=== PATIENT | female | born 1980 ===

== ENCOUNTER 2019-03-20 16:35 | Outpatient (REF) | payer BC, SELFPAY ==
[2019-03-23 11:01] LABS: TSH (W/Ref FT4) 1.08 uIU/mL (0.36-3.74)
[2019-03-23 11:02] LABS: HCT 37.9 % (36.0-46.0); HGB 12.7 g/dL (12.0-15.5); Mean Corp. HGB Concentration 33.5 g/dL (32.0-36.0); Mean Corpuscular Hemoglobin 30.4 pg (27.0-33.0); Mean Corpuscular Volume 90.7 fL (80-95); Mean Platelet Volume 10.1 fL (8.0-11.0); Platelet Count 276 x1000/uL (130-400); RBC 4.18 m/cumm (4.00-5.20); RBC Distribution Width 12.3 % (11.7-14.6); White Blood Cell Count 6.72 k/cumm (4.4-10.8)
[2019-03-23 11:52] LABS: Vitamin D 25 Total 38.3 ng/ml (30-100)
== END 2019-03-20 16:55 ==
LOC: NCHCN 16:35
PROVIDERS: Visit Provider Nurse Practitioner Family
DX: R53.83 Other fatigue (principal)
CPT/HCPCS: 82306; 85027; 84443

== ENCOUNTER 2020-10-24 22:00 | Outpatient (REF) | payer BC, SELFPAY ==
[2020-10-26 11:27] LABS: COVID-19 RT-PCR UVMMC Result Negative (Negative)
== END 2020-10-24 22:01 | disposition home or self-care (01) ==
LOC: NCHCN 22:00
PROVIDERS: Visit Provider Nurse Practitioner Family
DX: Z20.822 Contact with and (suspected) exposure to COVID-19 (principal)
CPT/HCPCS: U0003

== ENCOUNTER 2022-12-18 17:52 | Outpatient (REF) | payer BC, MEDICAID, SELFPAY ==
[2022-12-18 21:24] LABS: HCT 38.7 % (36.0-46.0); HGB 13.1 g/dL (11.2-15.7); MCH 30.6 pg (27.0-33.0); MCHC 33.9 % (32.0-36.0); MCV 90 fL (80-95); Platelet Count 258 10^3/uL (130-400); RBC 4.28 10^6/uL (3.93-5.22); RDW-SD 39.8 fL; WBC 6.42 10^3/uL (4.4-10.8)
[2022-12-18 22:00] LABS: Anion Gap 5.7 mmol/L (3-11); BUN 16 mg/dL (7-18); CO2 28.3 mmol/L (21.0-32.0); CREATININE 0.7 mg/dL (0.55-1.02); Calcium 8.6 mg/dL (8.5-10.1); Chloride 105 mmol/L (98-107); Estimated GFR 111.36 (mL/min/1.73m2); Ferritin 42 ng/mL (8-252); Glucose 105 mg/dL (74-106); Potassium 4.1 mmol/L (3.5-5.1); Sodium 139 mmol/L (136-145); Vitamin B12 516 pg/mL (193-986)
[2022-12-18 22:46] LABS: Vitamin D 25 Total 41.2 ng/mL (30-100)
== END 2022-12-18 17:53 | disposition home or self-care (01) ==
LOC: NCHCN 17:52
PROVIDERS: Visit Provider Nurse Practitioner Family
DX: R53.83 Other fatigue (principal)
CPT/HCPCS: 80048; 82306; 85027; 82607; 82728

== ENCOUNTER 2023-10-07 18:59 | Outpatient (REF) | payer BC, MEDICAID, SELFPAY ==
[2023-10-07 15:25] LABS: HCT 40.1 % (36.0-46.0); HGB 13.6 g/dL (11.2-15.7); MCH 30.8 pg (27.0-33.0); MCHC 33.9 % (32.0-36.0); MCV 91 fL (80-95); Platelet Count 229 10^3/uL (130-400); RBC 4.42 10^6/uL (3.93-5.22); RDW 12.1 % (11.7-14.6); RDW-SD 40.9 fL; WBC 6.26 10^3/uL (4.4-10.8)
[2023-10-07 16:03] LABS: Anion Gap 7.4 mmol/L (3-11); BUN 11 mg/dL (7-18); CO2 27.6 mmol/L (21.0-32.0); CREATININE 0.6 mg/dL (0.55-1.02); Calcium 8.6 mg/dL (8.5-10.1); Chloride 105 mmol/L (98-107); Estimated GFR 115.57 (mL/min/1.73m2); Glucose 98 mg/dL (74-106); Sodium 140 mmol/L (136-145); Vitamin D 25 Total 48.5 ng/mL (30-100)
== END 2023-10-07 19:00 | disposition home or self-care (01) ==
LOC: NCHCN 18:59
PROVIDERS: PCP Nurse Practitioner Family; Visit Provider Nurse Practitioner Family
DX: E55.9 Vitamin D deficiency, unspecified (principal); R53.83 Other fatigue; F41.8 Other specified anxiety disorders
CPT/HCPCS: 80048; 82306; 85027; 84443

== ENCOUNTER 2024-07-23 00:41 | Outpatient (CLI) | payer BC, SELFPAY ==
--- NOTE | 2024-07-23 | DI.MAMMO_ITS ---
Exam(s) MAMMO SCREENING EXAM: MAMMO SCREENING CLINICAL HISTORY: Screening, Z12.31. TECHNIQUE: Bilateral full field digital CC and MLO mammographic images were obtained with 3D tomosyn thesis and utilizing computer aided detection (CAD). COMPARISON: None. This is a baseline mammogram on this 43-year-old FINDINGS: Fibroglandular tissue pattern is moderately dense. There are no CAD designations. There are no new spiculated masses nor malignant appearing microcalcification groups. There is no significant architectural distortion nor skin thickening-retraction. IMPRESSION: No radiographic evidence of malignancy. BI-RADS Category 1 - Negative Breast Density - Category C - Heterogeneously dense Breast density Category C or D implies that the patient has dense breast tissue. Dense breast tissue can make it harder to find cancer on a mammogram. Dense breast tissue is also associated with an incr eased risk of breast cancer. This information about the result of the mammogram report was provided to the patient to raise their awareness. Use this report when you speak with the patient about their risks for breast cancer, which includes their family history. At that time, you may recommend additional screening tests (Ultrasoun d or MRI) as these tests may add significant information. A negative radiographic report should not delay biopsy if a dominant or clinically suspicious mass is present. Up to ten percent of cancers are not identified on mammography. A negative report may reinforce clinical impression. Adenosis and dense breasts may obscure an underlying neoplasm. False positive reports average 6 to 10%. Patient will receive a letter notifying them of these results.
== END 2024-07-23 01:01 ==
PROVIDERS: PCP Nurse Practitioner Family; Visit Provider Family Medicine
DX: Z12.31 Encounter for screening mammogram for malignant neoplasm of breast (principal); R92.333 Mammographic heterogeneous density, bilateral breasts
CPT/HCPCS: 77063; 77067